=== PATIENT | male | born 1980 | race American Indian/Alaskan Native ===

== ENCOUNTER 2020-02-23 13:56 | Emergency (ER) | payer SELFPAY ==
[2020-02-23 14:03] VITALS: BP 120/88
--- NOTE | 2020-02-23 15:03 | XRay Report ---
RIGHT ELBOW 4 VIEW(S) INDICATION / CLINICAL INFORMATION: PAIN /SWELLING status post fall on 02/18/20. COMPARISON: None available. FINDINGS: BONES / JOINT(S): No acute fracture or subluxation. No significant arthritis. No significant joint ef fusion. SOFT TISSUES: Mild posterior soft tissue swelling. ADDITIONAL FINDINGS: None. Signer Name: Nathalia Gold MD Signed: 02/23/2020 2:58 PM Workstation Name: [id number]
[2020-02-23] MEDS ORDERED: AZITHROMYCIN 250 MG TAB PO ONE (16:08)
[2020-02-23] MEDS ORDERED: LIDOCAINE-MPF (1%) 10 MG/1 ML VIAL 5 ML INFILTRATI ONE (16:08)
--- NOTE | 2020-02-23 16:38 | Emergency Department Report ---
ED General Adult HPI - General Chief complaint: Extremity Injury, Upper Stated complaint: RT ARM PAIN/NECK PAIN Time Seen by Provider: 02/23/20 16:07 Source: patient Mode of arrival: Ambulatory Limitations: No Limitations - History of Present Illness Initial comments: 39-year-old male presents with 2 complaints. 1 he states he was exposed to STD and needs to be treated. Denies any specific symptoms. Second, he had a fall on Hall evening in which he injured his back and neck and right hand. He states he has right hand right elbow and neck pain. Denies any radiation, numbness, weakness, head injury. Onset sudden, mild severity, no modifying factors. Severity scale (0 -10): 8 - Related Data Previous Rx's Medication Instructions Recorded Last Taken Type Cyclobenzaprine [Flexeril] 10 mg PO TID PRN #15 tablet 02/23/20 Unknown Rx Naproxen [Naprosyn] 500 mg PO BID #20 tablet 02/23/20 Unknown Rx Prednisone [predniSONE 10 mg 10 mg PO .TAPER #1 tab.ds.pk 02/23/20 Unknown Rx (6-Day Pack, 21 Tabs)] Allergies Allergy/AdvReac Type Severity Reaction Status Date / Time No Known Allergies Allergy Unverified 02/23/20 13:59 ED Review of Systems ROS: Stated complaint: RT ARM PAIN/NECK PAIN Other details as noted in HPI Comment: All other systems reviewed and negative Genitourinary: as per HPI Musculoskeletal: as per HPI ED Past Medical Hx - Past Medical History Previous Medical History?: No - Surgical History Past Surgical History?: Yes - Medications Home Medications: Home Medications Medication Instructions Recorded Confirmed Last Taken Type Cyclobenzaprine [Flexeril] 10 mg PO TID PRN #15 tablet 02/23/20 Unknown Rx Naproxen [Naprosyn] 500 mg PO BID #20 tablet 02/23/20 Unknown Rx Prednisone [predniSONE 10 mg 10 mg PO .TAPER #1 tab.ds.pk 02/23/20 Unknown Rx (6-Day Pack, 21 Tabs)] ED Physical Exam - General Limitations: No Limitations General appearance: alert, in no apparent distress - Head Head exam: Present: atraumatic, normocephalic - Eye Eye exam: Present: normal appearance - ENT ENT exam: Present: mucous membranes moist - Neck Neck exam: Present: normal inspection - Respiratory Respiratory exam: Present: normal lung sounds bilaterally. Absent: respiratory distress - Cardiovascular Cardiovascular Exam: Present: regular rate, normal rhythm. Absent: systolic murmur, diastolic murmur, rubs, gallop - GI/Abdominal GI/Abdominal exam: Present: soft, normal bowel sounds - Rectal Rectal exam: Present: deferred - Extremities Exam Extremities exam: Present: normal inspection, other (Tenderness over the ulnar aspect of the right hand, tenderness over the olecranon, normal pulse) - Back Exam Back exam: Present: normal inspection, tenderness (R C and T spine) - Neurological Exam Neurological exam: Present: alert, oriented X3 - Psychiatric Psychiatric exam: Present: normal affect, normal mood - Skin Skin exam: Present: warm, dry, intact, normal color. Absent: rash ED Course Vital Signs 02/23/20 14:02 Temperature 97.8 F Pulse Rate 71 Respiratory 20 Rate Blood Pressure 120/88 [Left] O2 Sat by Pulse 96 Oximetry ED Medical Decision Making - Radiology Data Radiology results: report reviewed No acute findings on plain films of the elbow hand T and C-spine - Medical Decision Making Patient presents with concerns of STD, no specific symptoms, will test and treat empirically with Rocephin and azithromycin. Also concerns of right upper extremity pain after a fall about a week ago. On my exam he does have some tenderness to the right elbow, ulnar aspect of the right hand as well as the right side of the C and T-spine, no L-spine tenderness. No neurologic deficits. X-rays are pending. Urinalysis sent. X-rays are negative other than some mild degenerative changes, encouraged outpatient follow-up with orthopedics. - Differential Diagnosis Radiculopathy, contusion, fracture Critical care attestation.: If time is entered above; I have spent that time in minutes in the direct care of this critically ill patient, excluding procedure time. ED Disposition Clinical Impression: Cervical radicular pain, Exposure to STD Contusion of elbow, right Qualifiers: Encounter type: initial encounter Qualified Code(s): S50.01XA - Contusion of right elbow, initial encounter Disposition: TO HOME OR SELFCARE Is pt being admited?: No Condition: Good Instructions: Contusion, [id number], Radicular Pain, Cervical Radiculopathy, [id number] Prescriptions: Cyclobenzaprine [Flexeril] 10 mg PO TID PRN #15 tablet PRN Reason: Muscle Spasm Naproxen [Naprosyn] 500 mg PO BID #20 tablet Prednisone [predniSONE 10 mg (6-Day Pack, 21 Tabs)] 10 mg PO .TAPER #1 tab.ds.pk Referrals: PRIMARY CARE, [Primary Care Provider] - 3-5 Days VIOLA BARBER MD [Staff Physician] - 3-5 Days TOÑO SCHULTZ MD [Staff Physician] - 3-5 Days Time of Disposition: 17:24
--- NOTE | 2020-02-23 17:15 | XRay Report ---
CERVICAL SPINE 4 VIEWS THORACIC SPINE 2 VIEWS INDICATION: Neck and back pain. COMPARISON: No relevant prior imaging study available. FINDINGS: VERTEBRAE: No acute fracture. There is mild thoracic dextroscoliosis. Normal alignment of the cervica l spine. DISC SPACES: Mild discogenic degenerative changes are noted at C5-C6 and C6-C7. No other significant abnormalities. FACET JOINTS: No significant abnormality. SOFT TISSUES: No significant abnormality. ADDITIONAL FINDINGS: No additional significant findings. IMPRESSION: 1. No acute findings. 2. Additional findings as above. Signer Name: Miguel Troncoso MD Signed: 02/23/2020 5:10 PM Workstation Name: [id number]
--- NOTE | 2020-02-23 17:17 | XRay Report ---
XR hand 3+V RT INDICATION / CLINICAL INFORMATION: R hand pain. COMPARISON: None available. FINDINGS: No acute fracture. Normal alignment. Os radiale externum externum which is an accessory ossicle pre sent near the scaphoid. Joint spaces are preserved. No destructive osseous lesion or suspicious perio steal reaction. Impression: 1.No significant osseous abnormality. Signer Name: Calixto Perez MD Signed: 02/23/2020 5:13 PM Workstation Name: [id number]
== END 2020-02-23 17:49 | disposition home or self-care (01) ==
LOC: ED 13:56
DX: S50.01XA Contusion of right elbow, initial encounter (principal); M54.2 Cervicalgia; Z20.2 Contact with and (suspected) exposure to infections with a predominantly sexual mode of transmission; W18.30XA Fall on same level, unspecified, initial encounter; Y93.89 Activity, other specified; Y92.89 Other specified places as the place of occurrence of the external cause; Y99.8 Other external cause status
CPT/HCPCS: 72040; 72070; 73070; 73130; 96372; 99283; J0696

== ENCOUNTER 2020-03-17 20:34 | Emergency (ER) | payer SELFPAY ==
--- NOTE | 2020-03-17 22:07 | XRay Report ---
XR chest routine 2V INDICATION / CLINICAL INFORMATION: Chest pain COMPARISON: None FINDINGS: SUPPORT DEVICES: None. HEART /PULMONARY VASCULATURE: No significant abnormality. LUNGS / PLEURA: No significant pulmonary or pleural abnormality. No pneumothorax. ADDITIONAL FINDINGS: No significant additional findings. IMPRESSION: 1. No acute findings. Signer Name: Momo Barrera MD Signed: 03/17/2020 10:02 PM Workstation Name: [id number]
--- NOTE | 2020-03-18 01:38 | Emergency Department Report ---
ED General Adult HPI - General Chief complaint: Chest Pain Stated complaint: CHEST PAIN/COUGH/COLD SX Time Seen by Provider: 03/18/20 01:30 Source: patient Mode of arrival: Ambulatory Limitations: No Limitations - History of Present Illness Initial comments: 39-year-old -Thai male patient presents with complaints of cough x2 days. He reports that he is having chest pain and back pain that occurs with coughing only. He denies any hemoptysis, sputum production, fever/chills/sweats, shortness of breath, recent known sick contacts, nausea/v omiting/diarrhea/abdominal pain, or loss of taste/smell. He admits to being a current every day smoker. - Related Data Previous Rx's Medication Instructions Recorded Last Taken Type Cyclobenzaprine [Flexeril] 10 mg PO TID PRN #15 tablet 02/23/20 Unknown Rx Naproxen [Naprosyn] 500 mg PO BID #20 tablet 02/23/20 Unknown Rx Albuterol Mdi (or & Nicu Only) 2 puff IH Q4H PRN #8.5 gram 03/18/20 Unknown Rx [ProAir HFA Inhaler] Benzonatate 200 mg PO TID PRN #30 capsule 03/18/20 Unknown Rx Prednisone [predniSONE 10 mg 10 mg PO .TAPER #1 tab.ds.pk 03/18/20 Unknown Rx (6-Day Pack, 21 Tabs)] Allergies Allergy/AdvReac Type Severity Reaction Status Date / Time No Known Allergies Allergy Unverified 02/23/20 13:59 ED Review of Systems ROS: Stated complaint: CHEST PAIN/COUGH/COLD SX Other details as noted in HPI Constitutional: denies: chills, fever, malaise ENT: denies: throat pain Respiratory: cough. denies: shortness of breath Cardiovascular: as per HPI. denies: edema, syncope Gastrointestinal: denies: abdominal pain, nausea, vomiting, diarrhea Musculoskeletal: as per HPI Skin: denies: change in color Hematological/Lymphatic: denies: swollen glands ED Past Medical Hx - Past Medical History Previous Medical History?: Yes Hx Psychiatric Treatment: Yes (Anxiety) - Surgical History Past Surgical History?: No - Social History Smoking Status: Current Every Day Smoker Substance Use Type: Marijuana - Medications Home Medications: Home Medications Medication Instructions Recorded Confirmed Last Taken Type Cyclobenzaprine [Flexeril] 10 mg PO TID PRN #15 tablet 02/23/20 Unknown Rx Naproxen [Naprosyn] 500 mg PO BID #20 tablet 02/23/20 Unknown Rx Albuterol Mdi (or & Nicu Only) 2 puff IH Q4H PRN #8.5 gram 03/18/20 Unknown Rx [ProAir HFA Inhaler] Benzonatate 200 mg PO TID PRN #30 capsule 03/18/20 Unknown Rx Prednisone [predniSONE 10 mg 10 mg PO .TAPER #1 tab.ds.pk 03/18/20 Unknown Rx (6-Day Pack, 21 Tabs)] ED Physical Exam - General Limitations: No Limitations General appearance: alert, in no apparent distress - Head Head exam: Present: atraumatic, normocephalic - Eye Eye exam: Present: normal appearance. Absent: scleral icterus - ENT ENT exam: Present: mucous membranes moist - Neck Neck exam: Present: normal inspection - Respiratory Respiratory exam: Present: wheezes. Absent: respiratory distress, rales, rhonchi, accessory muscle use - Cardiovascular Cardiovascular Exam: Present: regular rate, normal rhythm. Absent: systolic murmur, diastolic murmur, rubs, gallop - GI/Abdominal GI/Abdominal exam: Present: soft. Absent: tenderness - Neurological Exam Neurological exam: Present: alert, oriented X3, normal gait - Psychiatric Psychiatric exam: Present: normal affect, normal mood - Skin Skin exam: Present: warm, dry, intact, normal color. Absent: rash, cyanosis, diaphoretic, pallor ED Course Vital Signs 03/17/20 21:26 Temperature 98.5 F Pulse Rate 75 Respiratory 18 Rate Blood Pressure 140/85 O2 Sat by Pulse 98 Oximetry ED Medical Decision Making - Radiology Data Radiology results: report reviewed XR chest routine 2V INDICATION / CLINICAL INFORMATION: Chest pain COMPARISON: None FINDINGS: SUPPORT DEVICES: None. HEART /PULMONARY VASCULATURE: No significant abnormality. LUNGS / PLEURA: No significant pulmonary or pleural abnormality. No pneumothorax. ADDITIONAL FINDINGS: No significant additional findings. IMPRESSION: 1. No acute findings. - Medical Decision Making 39-year-old -Thai male patient presents with complaints of cough x2 days. He reports that he is having chest pain and back pain that occurs with coughing only. He denies any hemoptysis, sputum production, fever/chills/sweats, shortness of breath, recent known sick contacts, nausea/vomiting/diarrhea/abdominal pain, or loss of taste/smell. He admits to being a current every day smoker. Mild wheezing noted bilaterally on exam without rhonchi or rails. Chest x-ray is normal and vitals are normal. Will treat for viral bronchitis. Recommend follow-up with PCP in 3 days. Patient provided with [employer] testing facility list and encouraged to get checked. He is well-appearing and stable for discharge home. Strict return precautions were discussed in detail with patient who verbalizes understanding. Critical care attestation.: If time is entered above; I have spent that time in minutes in the direct care of this critically ill patient, excluding procedure time. ED Disposition Clinical Impression: Acute viral bronchitis Disposition: - TO HOME OR SELFCARE Is pt being admited?: No Condition: Stable Instructions: Acute Bronchitis (ED), Acute Bronchitis, Adult Prescriptions: Benzonatate 200 mg PO TID PRN #30 capsule PRN Reason: Cough Prednisone [predniSONE 10 mg (6-Day Pack, 21 Tabs)] 10 mg PO .TAPER #1 tab.ds.pk Albuterol Mdi (or & Nicu Only) [ProAir HFA Inhaler] 2 puff IH Q4H PRN #8.5 gram PRN Reason: Wheezing Referrals: [facility] [Provider Group] - 03/21/20
[2020-03-18] MEDS ORDERED: IPRATROPIUM/ALBUTEROL SULFATE 3 ML AMPUL.NEB IH ONE (01:47)
[2020-03-18] MEDS ORDERED: predniSONE 20 MG TAB PO ONE (01:47)
[2020-03-18 03:16] VITALS: BP 137/82
== END 2020-03-18 02:28 | disposition home or self-care (01) ==
LOC: ED 20:34
DX: J20.8 Acute bronchitis due to other specified organisms (principal)
CPT/HCPCS: 71046; 93005; 94644; 99283; J7512; 94640